=== PATIENT | male | born 1975 | race Caucasian/White ===

== ENCOUNTER 2016-12-03 10:22 | Day surgery (SDC) | payer OTHER, BC ==
[2016-11-29 10:48] VITALS: BMI 29.9
[2016-12-03] MEDS ORDERED: PROPOFOL 20 ML ONE (10:35)
[2016-12-03 11:26] VITALS: TEMP 97.7
[2016-12-03 11:48] VITALS: BP 125/77; PULSE 72
== END 2016-12-03 11:47 | disposition home or self-care (01) ==
LOC: FASU-ENDO 10:22
PROVIDERS: ATTEND Internal Medicine Gastroenterology
PROC: 0DJD8ZZ Inspection of Lower Intestinal Tract, Via Natural or Artificial Opening Endoscopic (ICD-10-PCS; principal; 2016-12-03 10:48)
DX: K64.4 Residual hemorrhoidal skin tags (principal)